=== PATIENT | female | born 1940 | race Caucasian/White ===

== ENCOUNTER → 2016-09-30 | Outpatient (CLI) | payer MEDICARE, MEDICAID ==
[~2016-09-30] MED LIST: CYCL-259 PO; DULO20CA45 PO; GABA300C10 PO; GABA600T2 PO; INSU100V8 SQ; LEVO125T5 PO; METF500T4 PO; OLME40TA PO; OXYC1TAB7 PO; [UNRECOGNIZED DRUG - OTHER] PO
== END | disposition home or self-care (01) ==
LOC: CFH 15:09
PROVIDERS: ATTEND Family Medicine
DX: M75.122 Complete rotator cuff tear or rupture of left shoulder, not specified as traumatic (principal); S43.492A Other sprain of left shoulder joint, initial encounter; M19.012 Primary osteoarthritis, left shoulder; X58.XXXA Exposure to other specified factors, initial encounter; Y93.89 Activity, other specified; Y92.89 Other specified places as the place of occurrence of the external cause; Y99.8 Other external cause status

== ENCOUNTER → 2017-03-17 | Outpatient (CLI) | payer MEDICARE, MEDICAID ==
[~2017-03-17] MED LIST changes: -OLME40TA PO; +OLME40TA12 PO
[2017-03-17 12:40] LABS: HEMATOCRIT 39.1 % (34.6-47.8); HEMOGLOBIN 12.6 g/dL (11.7-16.4); WHITE BLOOD COUNT 8.5 x10^3/uL (3.4-10)
[2017-03-17 12:43] LABS: BLOOD UREA NITROGEN 36 mg/dL (7-18)
[2017-03-17 12:56] LABS: ASPARTATE AMINO TRANSFERASE 19 U/L (15-37)
== END | disposition home or self-care (01) ==
LOC: LAB 09:17
PROVIDERS: ATTEND Family Medicine
DX: Z00.01 Encounter for general adult medical examination with abnormal findings (principal); E78.2 Mixed hyperlipidemia; E11.9 Type 2 diabetes mellitus without complications; E03.8 Other specified hypothyroidism; Z79.899 Other long term (current) drug therapy
CPT/HCPCS: 36415; 80053; 80061; 81001; 83036; 84443; 85025

== ENCOUNTER 2017-10-18 12:30 | Emergency (ER) | payer MEDICARE, MEDICAID ==
[~2017-10-18] VITALS: Ht 162.6 cm; Wt 100.0 kg
[2017-10-18] MEDS ORDERED: HYDROcodone/APAP 5/325 TABLET PO ONE (15:00)
[2017-10-18] MEDS ORDERED: HYDROcodone/APAP 5/325 TABLET ONE (15:08)
[2017-10-18 16:12] VITALS: BP 135/78
== END 2017-10-18 16:14 | disposition home or self-care (01) ==
LOC: ED 16:05
DX: S40.012A Contusion of left shoulder, initial encounter (principal); S09.90XA Unspecified injury of head, initial encounter; M54.6 Pain in thoracic spine; M54.5 Low back pain; E11.9 Type 2 diabetes mellitus without complications; W19.XXXA Unspecified fall, initial encounter; Y93.89 Activity, other specified; Y92.89 Other specified places as the place of occurrence of the external cause; Y99.8 Other external cause status
CPT/HCPCS: 70450; 71046; 72072; 72110; 99284

== ENCOUNTER 2017-10-20 10:17 | Inpatient (IN) | payer MEDICARE, MEDICAID ==
[~2017-10-20] VITALS: Ht 152.4 cm; Wt 90.0 kg
[2017-10-20] MEDS ORDERED: DIAZEPAM 5 MG/ML, 2ML IM ONE (11:00)
[2017-10-20 11:18] LABS: BASOPHILS # (AUTO) 0.04 x10^3/uL (0-0.1); BASOPHILS % (AUTO) 1 % (0-1); EOSINOPHILS # (AUTO) 0.39 x10^3/uL (0-0.4); EOSINOPHILS % (AUTO) 6 % (1-7); LYMPHOCYTES # (AUTO) 2.71 x10^3/uL (1-3.4); LYMPHOCYTES % (AUTO) 39 % (22-44); MD NO; MEAN CORPUSCULAR HEMOGLOBIN 30.6 pg (27.0-34.8); MEAN CORPUSCULAR VOLUME 92.7 fL (80-100); MEAN PLATELET VOLUME 7.6 fL (7.4-10.4); MONOCYTES # (AUTO) 0.76 x10^3/uL (0.2-0.8); MONOCYTES % (AUTO) 11 % (2-9); NEUTROPHILS # (AUTO) 2.98 x10^3/uL (1.8-6.8); NEUTROPHILS % (AUTO) 43 % (42-75); PLATELET COUNT 320 x10^3/uL (130-400); RED BLOOD COUNT 3.93 x10^6/uL (3.82-5.3); RED CELL DISTRIBUTION WIDTH 14.2 % (9.6-15.2)
[2017-10-20 11:21] LABS: INTERNATIONAL NORMALIZED RATIO 1.01 (0.93-1.1); PROTHROMBIN TIME 10.5 Seconds (9.6-11.5)
[2017-10-20 11:27] LABS: ALBUMIN 3.1 g/dL (3.4-5.0); ANION GAP 5 mmol/L (5-15); CALCIUM 8.4 mg/dL (8.5-10.1); CHLORIDE 105 mmol/L (98-107)
[2017-10-20 11:30] LABS: ALANINE AMINOTRANSFERASE 17 U/L (12-78); ALKALINE PHOSPHATASE 105 U/L (45-117); BILIRUBIN,TOTAL 0.5 mg/dL (0.2-1.0); CREATININE 1.42 mg/dL (0.55-1.02); TOTAL PROTEIN 7.1 g/dL (6.4-8.2)
[2017-10-20] MEDS ORDERED: hydrALAzine 20 MG/ML, 1ML IVPush PRN (15:00)
[2017-10-20] MEDS ORDERED: POLYETHYLENE GLYCOL 17 GM PACKET PO PRN (15:00)
[2017-10-20] MEDS ORDERED: BISACODYL 10 MG SUPP PR PRN (15:00)
[2017-10-20] MEDS ORDERED: ONDANSETRON 2MG/ML, 2ML IVPush PRN (15:00)
[2017-10-20] MEDS ORDERED: GLUCAGON 1 MG IM PRN (15:00)
[2017-10-20] MEDS ORDERED: DEXTROSE 50%, 50ML SYRINGE IVPush PRN (15:00)
[2017-10-20] MEDS ORDERED: ACETAMINOPHEN 325 MG TABLET PO PRN (15:00)
[2017-10-20] MEDS ORDERED: LABETALOL 5MG/ML, 20ML IVPush PRN (15:00)
[2017-10-20] MEDS ORDERED: ONDANSETRON ODT 4 MG PO PRN (15:00)
[2017-10-20] MEDS ORDERED: DEXTROSE 4 GM TAB.CHEW PO PRN (15:00)
[2017-10-20] MEDS: INSULIN LISPRO 100 UNITS/ML, PEN SQ-INSULIN SCH ×2 (16:00→20:06)
[2017-10-20 16:23] VITALS: BP 133/61
[2017-10-20 16:30] VITALS: BP 129/70
[2017-10-20 16:31] VITALS: BP 156/72
[2017-10-20] MEDS: HEPARIN 5,000 UNITS/ML, 1ML SQ SCH (17:04)
[2017-10-20] MEDS: LACTATED RINGERS 1,000 ML IV SCH (17:04)
[2017-10-20] MEDS: OXYcodone/APAP 10/325MG TABLET PO PRN (18:54)
[2017-10-20 19:58] VITALS: BP 153/82
[2017-10-20] MEDS: DULOXETINE 30 MG CAPSULE.DR PO SCH (20:05)
[2017-10-20] MEDS: INSULIN GLARGINE 100 UNITS/ML, PEN SQ-INSULIN SCH (20:06)
[2017-10-20] MEDS: SODIUM CHLORIDE FLUSH 10ML SYR IVF SCH (20:06)
[2017-10-21] MEDS: HEPARIN 5,000 UNITS/ML, 1ML SQ SCH ×4 (00:17→21:19)
[2017-10-21 01:03] VITALS: BP 159/84
[2017-10-21] MEDS: OXYcodone/APAP 10/325MG TABLET PO PRN ×4 (02:27→21:18)
[2017-10-21 05:11] LABS: BASOPHILS # (AUTO) 0.03 x10^3/uL (0-0.1); BASOPHILS % (AUTO) 1 % (0-1); EOSINOPHILS # (AUTO) 0.27 x10^3/uL (0-0.4); EOSINOPHILS % (AUTO) 4 % (1-7); LYMPHOCYTES # (AUTO) 1.83 x10^3/uL (1-3.4); LYMPHOCYTES % (AUTO) 30 % (22-44); MD NO; MEAN CORPUSCULAR HEMOGLOBIN 30.1 pg (27.0-34.8); MEAN CORPUSCULAR HGB CONC 32.7 g/dL (32.4-35.8); MEAN CORPUSCULAR VOLUME 91.8 fL (80-100); MEAN PLATELET VOLUME 7.4 fL (7.4-10.4); MONOCYTES # (AUTO) 0.55 x10^3/uL (0.2-0.8); MONOCYTES % (AUTO) 9 % (2-9); NEUTROPHILS # (AUTO) 3.45 x10^3/uL (1.8-6.8); NEUTROPHILS % (AUTO) 56 % (42-75); PLATELET COUNT 326 x10^3/uL (130-400); RED BLOOD COUNT 3.94 x10^6/uL (3.82-5.3); RED CELL DISTRIBUTION WIDTH 13.9 % (9.6-15.2)
[2017-10-21 05:22] LABS: CHLORIDE 109 mmol/L (98-107)
[2017-10-21 05:31] LABS: ALANINE AMINOTRANSFERASE 15 U/L (12-78); ALBUMIN 2.8 g/dL (3.4-5.0); ALKALINE PHOSPHATASE 100 U/L (45-117); ANION GAP 6 mmol/L (5-15); BILIRUBIN,TOTAL 0.8 mg/dL (0.2-1.0); CALCIUM 8.5 mg/dL (8.5-10.1); CREATININE 0.95 mg/dL (0.55-1.02); TOTAL PROTEIN 6.8 g/dL (6.4-8.2)
[2017-10-21] MEDS: LACTATED RINGERS 1,000 ML IV SCH ×2 (05:33→21:18)
[2017-10-21] MEDS: LEVOTHYROXINE 125 MCG TABLET PO SCH (06:19)
[2017-10-21] MEDS: INSULIN LISPRO 100 UNITS/ML, PEN SQ-INSULIN SCH ×4 (06:21→21:56)
[2017-10-21 07:19] VITALS: BP 154/72
[2017-10-21] MEDS: LOSARTAN 50MG TABLET PO SCH (08:25)
[2017-10-21] MEDS: SODIUM CHLORIDE FLUSH 10ML SYR IVF SCH ×2 (08:26→21:00)
[2017-10-21] MEDS: DULOXETINE 30 MG CAPSULE.DR PO SCH ×2 (08:26→21:53)
[2017-10-21] MEDS: TOLTERODINE LA 4MG CAP.ER.24H PO SCH (08:26)
[2017-10-21] MEDS: SENNA/DOCUSATE TABLET PO SCH (08:26)
[2017-10-21 14:30] VITALS: BP 130/55
[2017-10-21 19:30] VITALS: BP 158/71
[2017-10-21] MEDS: INSULIN GLARGINE 100 UNITS/ML, PEN SQ-INSULIN SCH (21:56)
[2017-10-22] MEDS: OXYcodone/APAP 10/325MG TABLET PO PRN ×4 (01:44→21:30)
[2017-10-22 02:30] VITALS: BP 167/93
[2017-10-22] MEDS: LEVOTHYROXINE 125 MCG TABLET PO SCH (05:47)
[2017-10-22] MEDS: INSULIN LISPRO 100 UNITS/ML, PEN SQ-INSULIN SCH ×4 (07:00→20:33)
[2017-10-22 07:05] VITALS: BP 154/75
[2017-10-22 07:52] LABS: HEMOGLOBIN A1C 6.6 % (4.2-6.3)
[2017-10-22] MEDS: HEPARIN 5,000 UNITS/ML, 1ML SQ SCH ×2 (08:17→17:10)
[2017-10-22] MEDS: LOSARTAN 50MG TABLET PO SCH (08:17)
[2017-10-22] MEDS: DULOXETINE 30 MG CAPSULE.DR PO SCH ×2 (08:17→20:33)
[2017-10-22] MEDS: TOLTERODINE LA 4MG CAP.ER.24H PO SCH (08:17)
[2017-10-22] MEDS: SENNA/DOCUSATE TABLET PO SCH (08:17)
[2017-10-22] MEDS: SODIUM CHLORIDE FLUSH 10ML SYR IVF SCH ×2 (08:18→20:33)
[2017-10-22 13:54] VITALS: BP 151/90
[2017-10-22] MEDS ORDERED: metFORMIN 500 MG TABLET PO SCH (17:00)
[2017-10-22] MEDS: metFORMIN 500 MG TABLET PO SCH (17:10)
[2017-10-22 19:43] VITALS: BP 165/84
[2017-10-23] MEDS: HEPARIN 5,000 UNITS/ML, 1ML SQ SCH ×2 (00:11→08:25)
[2017-10-23 01:29] VITALS: BP_SYST 106; BP_SYST 146; BP_DIAS 53; BP_DIAS 70
[2017-10-23] MEDS: OXYcodone/APAP 10/325MG TABLET PO PRN ×2 (03:42→11:27)
[2017-10-23] MEDS: LEVOTHYROXINE 125 MCG TABLET PO SCH (06:11)
[2017-10-23] MEDS: INSULIN LISPRO 100 UNITS/ML, PEN SQ-INSULIN SCH ×2 (06:15→11:29)
[2017-10-23 08:03] VITALS: BP 179/91
[2017-10-23] MEDS: metFORMIN 500 MG TABLET PO SCH (08:26)
[2017-10-23] MEDS: DULOXETINE 30 MG CAPSULE.DR PO SCH (08:26)
[2017-10-23] MEDS: LOSARTAN 50MG TABLET PO SCH (08:26)
[2017-10-23] MEDS: SODIUM CHLORIDE FLUSH 10ML SYR IVF SCH (08:26)
[2017-10-23] MEDS: SENNA/DOCUSATE TABLET PO SCH (08:28)
[2017-10-23] MEDS: TOLTERODINE LA 4MG CAP.ER.24H PO SCH (08:28)
[2017-10-23] MEDS ORDERED: OXYC1TAB9 PO (09:10)
[2017-10-23] MEDS ORDERED: TOLT4CAP PO (09:10)
[2017-10-23 10:48] VITALS: BP 152/93
== END 2017-10-23 13:21 | disposition home or self-care (01) | DRG 551 ==
LOC: ED 10:41 → EDIP 13:20 → 4NOR 15:44
PROVIDERS: ADMIT Family Medicine; ATTEND Family Medicine
DX: S16.1XXA Strain of muscle, fascia and tendon at neck level, initial encounter (principal); N17.0 Acute kidney failure with tubular necrosis; E11.649 Type 2 diabetes mellitus with hypoglycemia without coma; R29.6 Repeated falls; W06.XXXA Fall from bed, initial encounter; I10 Essential (primary) hypertension; E03.9 Hypothyroidism, unspecified; G89.29 Other chronic pain; Z79.4 Long term (current) use of insulin; Z79.899 Other long term (current) drug therapy; Z87.891 Personal history of nicotine dependence; Z96.652 Presence of left artificial knee joint; Y93.89 Activity, other specified; Y92.042 Bedroom in boarding-house as the place of occurrence of the external cause; Y99.8 Other external cause status
CPT/HCPCS: 36415; 70450; 71045; 72125; 80053; 82962; 83036; 85025; 85610; 99285; J1644; J0360; J1815; J7120

== ENCOUNTER → 2018-03-06 | Outpatient (CLI) | payer MEDICARE, MEDICAID ==
[~2018-03-06] MED LIST changes: +METF500T17 PO; -METF500T4 PO; +OXYC-432 PO; +TOLT4CAP PO
== END | disposition home or self-care (01) ==
LOC: CFH 10:05
PROVIDERS: ATTEND Physical Medicine & Rehabilitation Pain Medicine
DX: M16.0 Bilateral primary osteoarthritis of hip (principal); M62.512 Muscle wasting and atrophy, not elsewhere classified, left shoulder; M70.61 Trochanteric bursitis, right hip; M70.62 Trochanteric bursitis, left hip; M54.16 Radiculopathy, lumbar region; M25.412 Effusion, left shoulder
CPT/HCPCS: 73523

== ENCOUNTER 2018-04-02 08:37 | Inpatient (IN) | payer MEDICARE, MEDICAID ==
[~2018-04-02] VITALS: Ht 152.4 cm; Wt 88.0 kg
[2018-04-02] MEDS ORDERED: SODIUM CHLORIDE FLUSH 10ML SYR IVF ONE (09:00)
[2018-04-02] MEDS ORDERED: SODIUM CHLORIDE 0.9% 1,000ML IVBOLUS ONE ×2 (09:00→09:30)
[2018-04-02] MEDS ORDERED: PLEASE ENTER HEIGHT AND WEIGHT MC SCH (09:00)
[2018-04-02 09:18] LABS: BASOPHILS # (AUTO) 0.07 x10^3/uL (0-0.1); BASOPHILS % (AUTO) 1 % (0-1); EOSINOPHILS # (AUTO) 0.05 x10^3/uL (0-0.4); EOSINOPHILS % (AUTO) 1 % (1-7); LYMPHOCYTES # (AUTO) 3.14 x10^3/uL (1-3.4); LYMPHOCYTES % (AUTO) 30 % (22-44); MD NO; MEAN CORPUSCULAR HEMOGLOBIN 29.9 pg (27.0-34.8); MEAN CORPUSCULAR HGB CONC 32.7 g/dL (32.4-35.8); MEAN CORPUSCULAR VOLUME 91.6 fL (80-100); MEAN PLATELET VOLUME 7.3 fL (7.4-10.4); MONOCYTES # (AUTO) 0.61 x10^3/uL (0.2-0.8); MONOCYTES % (AUTO) 6 % (2-9); NEUTROPHILS # (AUTO) 6.75 x10^3/uL (1.8-6.8); NEUTROPHILS % (AUTO) 64 % (42-75); PLATELET COUNT 418 x10^3/uL (130-400); RED BLOOD COUNT 4.43 x10^6/uL (3.82-5.3); RED CELL DISTRIBUTION WIDTH 14.6 % (9.6-15.2)
[2018-04-02 09:28] LABS: ALANINE AMINOTRANSFERASE 32 U/L (12-78); ALBUMIN 3.4 g/dL (3.4-5.0); ANION GAP 10 mmol/L (5-15); CALCIUM 9.1 mg/dL (8.5-10.1); CHLORIDE 101 mmol/L (98-107); CREATININE 2.26 mg/dL (0.55-1.02)
[2018-04-02] MEDS ORDERED: SODIUM CHLORIDE 0.9% 1,000 ML IV ONE (09:30)
[2018-04-02] MEDS ORDERED: DULO30CA2 PO (09:30)
[2018-04-02] MEDS ORDERED: GABA300C10 PO (09:30)
[2018-04-02] MEDS ORDERED: OXYC20TA2 PO (09:30)
[2018-04-02] MEDS ORDERED: TIZA4TAB PO (09:30)
[2018-04-02] MEDS ORDERED: PANT40TA5 PO (09:30)
[2018-04-02 09:32] LABS: ALKALINE PHOSPHATASE 131 U/L (45-117); BILIRUBIN,TOTAL 0.6 mg/dL (0.2-1.0); TOTAL PROTEIN 7.8 g/dL (6.4-8.2); TROPONIN I < 0.015 ng/mL (0.000-0.045)
[2018-04-02 10:36] LABS: MICROSCOPIC AUTO
[2018-04-02 10:38] LABS: CULTURE INDICATED? YES
[2018-04-02] MEDS ORDERED: DEXTROSE 50%, 50ML SYRINGE IVPush ONE (11:30)
[2018-04-02] MEDS ORDERED: INSULIN REGULAR 100 UNITS/ML, 3ML VIAL IVPush ONE (11:30)
[2018-04-02] MEDS ORDERED: CEFTRIAXONE PMX 1GM/50ML 50 ML IV ONE (11:30)
[2018-04-02] MEDS ORDERED: CEFTRIAXONE 1,000 MG IM ONE (11:30)
[2018-04-02] MEDS ORDERED: DEXTROSE 50%, 50ML SYRINGE ONE (11:31)
[2018-04-02] MEDS ORDERED: INSULIN REGULAR 100 UNITS/ML, 3ML VIAL ONE (11:32)
[2018-04-02] MEDS ORDERED: ACETAMINOPHEN 325 MG TABLET PO PRN (12:00)
[2018-04-02] MEDS ORDERED: GABAPENTIN 300 MG CAPSULE PO PRN (12:00)
[2018-04-02] MEDS ORDERED: hydrALAzine 20 MG/ML, 1ML IVPush PRN (12:00)
[2018-04-02] MEDS ORDERED: LABETALOL 5MG/ML, 20ML IVPush PRN (12:00)
[2018-04-02 12:12] LABS: HEMOGLOBIN A1C 7.5 % (4.2-6.3)
[2018-04-02] MEDS ORDERED: CEFTRIAXONE PMX 1GM/50ML 50 ML ONE (12:20)
[2018-04-02] MEDS: SODIUM CHLORIDE 0.9% 1,000 ML IV SCH ×2 (12:26→19:44)
[2018-04-02 12:31] LABS: TROPONIN I < 0.015 ng/mL (0.000-0.045)
[2018-04-02 12:50] VITALS: BP 110/48
[2018-04-02] MEDS ORDERED: HEPARIN 5,000 UNITS/ML, 1ML SQ SCH (14:00)
[2018-04-02 14:29] LABS: CHLORIDE,URINE RANDOM 45 mmol/L; POTASSIUM,URINE RANDOM 5 mmol/L; SODIUM,URINE RANDOM 48 mmol/L
[2018-04-02] MEDS: GABAPENTIN 300 MG CAPSULE PO SCH ×2 (16:15→22:33)
[2018-04-02 16:32] LABS: INTERNATIONAL NORMALIZED RATIO 1.01 (0.93-1.1); PROTHROMBIN TIME 10.5 Seconds (9.6-11.5)
[2018-04-02 16:55] LABS: TROPONIN I < 0.015 ng/mL (0.000-0.045)
[2018-04-02 19:27] LABS: ANION GAP 11 mmol/L (5-15); CALCIUM 8.2 mg/dL (8.5-10.1); CHLORIDE 113 mmol/L (98-107); CREATININE 1.73 mg/dL (0.55-1.02)
[2018-04-02] MEDS ORDERED: DULOXETINE 30 MG CAPSULE.DR PO SCH (21:00)
[2018-04-02] MEDS ORDERED: FAMOTIDINE 20 MG TABLET PO SCH (21:00)
[2018-04-02] MEDS ORDERED: SODIUM BICARB 8.4%,50ML SYR. 75 MEQ in SODIUM CHLORIDE 0.45% 1,000 ML IV SCH (22:00)
[2018-04-03 01:13] VITALS: BP 111/58
[2018-04-03 01:37] LABS: ANION GAP 7 mmol/L (5-15); CALCIUM 8.3 mg/dL (8.5-10.1); CHLORIDE 113 mmol/L (98-107); CREATININE 1.34 mg/dL (0.55-1.02)
[2018-04-03 01:46] LABS: TROPONIN I < 0.015 ng/mL (0.000-0.045)
[2018-04-03] MEDS ORDERED: SODIUM POLYSTYRENE SULFONATE ORAL SUSP PO ONE (02:00)
[2018-04-03] MEDS: SODIUM CHLORIDE 0.9% 1,000 ML IV SCH (03:44)
[2018-04-03 06:31] VITALS: BP 133/69
[2018-04-03 08:25] LABS: BASOPHILS # (AUTO) 0.05 x10^3/uL (0-0.1); BASOPHILS % (AUTO) 1 % (0-1); EOSINOPHILS # (AUTO) 0.05 x10^3/uL (0-0.4); EOSINOPHILS % (AUTO) 0 % (1-7); LYMPHOCYTES # (AUTO) 3.22 x10^3/uL (1-3.4); LYMPHOCYTES % (AUTO) 29 % (22-44); MD SCAN; MEAN CORPUSCULAR HEMOGLOBIN 30.7 pg (27.0-34.8); MEAN CORPUSCULAR HGB CONC 33.4 g/dL (32.4-35.8); MEAN CORPUSCULAR VOLUME 91.7 fL (80-100); MEAN PLATELET VOLUME 8.1 fL (7.4-10.4); MONOCYTES # (AUTO) 0.58 x10^3/uL (0.2-0.8); MONOCYTES % (AUTO) 5 % (2-9); NEUTROPHILS # (AUTO) 7.07 x10^3/uL (1.8-6.8); NEUTROPHILS % (AUTO) 65 % (42-75); PLATELET COUNT 259 x10^3/uL (130-400); RED BLOOD COUNT 4.41 x10^6/uL (3.82-5.3)
[2018-04-03] MEDS ORDERED: TOLTERODINE TARTRATE 4 MG PO SCH (09:00)
[2018-04-03] MEDS ORDERED: LOSARTAN 50MG TABLET PO SCH (09:00)
[2018-04-03] MEDS ORDERED: FAMOTIDINE 20 MG TABLET PO SCH (09:00)
[2018-04-03] MEDS: GABAPENTIN 300 MG CAPSULE PO SCH (09:10)
[2018-04-03] MEDS: PANTOPROZOLE 40MG TABLET PO SCH (09:11)
[2018-04-03] MEDS: LEVOTHYROXINE 125 MCG TABLET PO SCH (09:12)
[2018-04-03] MEDS ORDERED: SODIUM BICARBONATE 8.4% 150 MEQ in DEXTROSE 5% 1,000 ML IV SCH (09:30)
[2018-04-03] MEDS: CEFTRIAXONE PMX 1GM/50ML 50 ML IV SCH (10:46)
[2018-04-03] MEDS: SODIUM ACETATE 150 MEQ in DEXTROSE 5% 1,000 ML IV SCH ×2 (10:46→23:15)
[2018-04-03 12:10] VITALS: BP 147/69
[2018-04-03] MEDS: LORazepam 2 MG/ML, 1ML IVPush PRN (16:13)
[2018-04-03] MEDS: OXYcodone/APAP 5/325MG TABLET PO PRN ×2 (16:58→22:17)
[2018-04-03 20:35] VITALS: BP 139/64
[2018-04-04 01:19] VITALS: BP 131/59
[2018-04-04] MEDS: LORazepam 2 MG/ML, 1ML IVPush PRN (01:35)
[2018-04-04] MEDS: OXYcodone/APAP 5/325MG TABLET PO PRN ×2 (03:40→11:24)
[2018-04-04] MEDS: LEVOTHYROXINE 125 MCG TABLET PO SCH (06:15)
[2018-04-04 07:18] VITALS: BP 157/81
[2018-04-04] MEDS: CEFTRIAXONE PMX 1GM/50ML 50 ML IV SCH (09:58)
[2018-04-04] MEDS: PANTOPROZOLE 40MG TABLET PO SCH (09:58)
[2018-04-04] MEDS: SODIUM ACETATE 150 MEQ in DEXTROSE 5% 1,000 ML IV SCH (10:45)
[2018-04-04 11:27] LABS: BASOPHILS % (AUTO) 1 % (0-1); EOSINOPHILS # (AUTO) 0.08 x10^3/uL (0-0.4); EOSINOPHILS % (AUTO) 1 % (1-7); LYMPHOCYTES # (AUTO) 3.06 x10^3/uL (1-3.4); LYMPHOCYTES % (AUTO) 36 % (22-44); MD NO; MEAN CORPUSCULAR HEMOGLOBIN 30.4 pg (27.0-34.8); MEAN CORPUSCULAR HGB CONC 33.4 g/dL (32.4-35.8); MEAN CORPUSCULAR VOLUME 91.1 fL (80-100); MEAN PLATELET VOLUME 6.8 fL (7.4-10.4); MONOCYTES # (AUTO) 0.79 x10^3/uL (0.2-0.8); MONOCYTES % (AUTO) 9 % (2-9); NEUTROPHILS # (AUTO) 4.37 x10^3/uL (1.8-6.8); NEUTROPHILS % (AUTO) 52 % (42-75); PLATELET COUNT 358 x10^3/uL (130-400); RED BLOOD COUNT 4.12 x10^6/uL (3.82-5.3); RED CELL DISTRIBUTION WIDTH 14.5 % (9.6-15.2)
[2018-04-04 11:28] LABS: ALBUMIN 2.7 g/dL (3.4-5.0); ANION GAP 8 mmol/L (5-15); CALCIUM 7.9 mg/dL (8.5-10.1); CHLORIDE 101 mmol/L (98-107)
[2018-04-04 11:31] LABS: ALANINE AMINOTRANSFERASE 26 U/L (12-78); ALKALINE PHOSPHATASE 100 U/L (45-117); BILIRUBIN,TOTAL 0.5 mg/dL (0.2-1.0)
[2018-04-04] MEDS ORDERED: POTASSIUM PHOS 4.4 MEQ/ML IV ONE (13:30)
[2018-04-04] MEDS ORDERED: MAGNESIUM SULFATE PMX 2GM/50ML 50 ML IV ONE (13:30)
[2018-04-04] MEDS ORDERED: POTASSIUM PHOSPHATE 22 MEQ in SODIUM CHLORIDE 0.9% 500 ML IV ONE (14:00)
[2018-04-04] MEDS: OXYcodone/APAP 10/325MG TABLET PO PRN ×2 (15:28→20:20)
[2018-04-04] MEDS: POTASSIUM CHLORIDE 20 MEQ PACKET PO SCH (17:22)
[2018-04-04 19:12] VITALS: BP 149/78
[2018-04-05] MEDS: OXYcodone/APAP 10/325MG TABLET PO PRN ×6 (00:55→19:47)
[2018-04-05 01:18] VITALS: BP 140/72
[2018-04-05] MEDS: GABAPENTIN 300 MG CAPSULE PO PRN (04:02)
[2018-04-05 04:08] LABS: CREATININE,URINE RANDOM 39.3 mg/dL
[2018-04-05 05:31] LABS: ALBUMIN 2.7 g/dL (3.4-5.0); ANION GAP 7 mmol/L (5-15); CALCIUM 7.6 mg/dL (8.5-10.1); CHLORIDE 102 mmol/L (98-107)
[2018-04-05 05:34] LABS: ALANINE AMINOTRANSFERASE 26 U/L (12-78); ALKALINE PHOSPHATASE 101 U/L (45-117); BILIRUBIN,TOTAL 0.3 mg/dL (0.2-1.0); CREATININE 0.95 mg/dL (0.55-1.02); TOTAL PROTEIN 6.9 g/dL (6.4-8.2)
[2018-04-05] MEDS ORDERED: MAGNESIUM SULFATE PMX 2GM/50ML 50 ML IV ONE (06:00)
[2018-04-05] MEDS: LEVOTHYROXINE 125 MCG TABLET PO SCH (06:37)
[2018-04-05 07:31] VITALS: BP 137/78
[2018-04-05] MEDS: PANTOPROZOLE 40MG TABLET PO SCH (09:26)
[2018-04-05] MEDS: POTASSIUM CHLORIDE 20 MEQ PACKET PO SCH ×2 (09:26→15:29)
[2018-04-05] MEDS: metroNIDAZOLE 250 MG TABLET PO SCH (09:26)
[2018-04-05] MEDS: CEFTRIAXONE PMX 1GM/50ML 50 ML IV SCH (09:30)
[2018-04-05 12:46] VITALS: BP 162/62
[2018-04-05] MEDS: CEFDINIR 300 MG CAPSULE PO SCH (19:47)
[2018-04-05 21:25] VITALS: BP 163/76
[2018-04-06] MEDS: OXYcodone/APAP 10/325MG TABLET PO PRN ×3 (00:43→09:24)
[2018-04-06 02:00] VITALS: BP 165/82
[2018-04-06] MEDS: LEVOTHYROXINE 125 MCG TABLET PO SCH (05:02)
[2018-04-06 07:47] VITALS: BP 173/79
[2018-04-06] MEDS: PANTOPROZOLE 40MG TABLET PO SCH (08:07)
[2018-04-06] MEDS: POTASSIUM CHLORIDE 20 MEQ PACKET PO SCH (08:07)
[2018-04-06] MEDS: metroNIDAZOLE 250 MG TABLET PO SCH (08:07)
[2018-04-06] MEDS: CEFDINIR 300 MG CAPSULE PO SCH (08:07)
[2018-04-06 08:10] VITALS: BP 163/78
[2018-04-06] MEDS: CEFTRIAXONE PMX 1GM/50ML 50 ML IV SCH (08:10)
[2018-04-06] MEDS ORDERED: CHOLECALCIFEROL 1,000 UNIT TABLET PO SCH (09:00)
[2018-04-06] MEDS: GABAPENTIN 300 MG CAPSULE PO PRN (09:23)
[2018-04-06 12:15] VITALS: BP 167/72
[2018-04-06] MEDS ORDERED: CEFD300C37 PO (12:43)
[2018-04-06] MEDS ORDERED: METR250T PO (12:43)
== END 2018-04-06 14:00 | disposition home or self-care (01) | DRG 64 ==
LOC: ED 09:19 → EDIP 10:11 → 4WST 13:11 → DCLOUNGE 04-06 13:55
PROVIDERS: ADMIT Family Medicine; ATTEND Family Medicine
PROC: 0T9B70Z Drainage of Bladder with Drainage Device, Via Natural or Artificial Opening (ICD-10-PCS; principal; 2018-04-02)
DX: I61.9 Nontraumatic intracerebral hemorrhage, unspecified (principal); G93.6 Cerebral edema; N17.9 Acute kidney failure, unspecified; N39.0 Urinary tract infection, site not specified; E87.3 Alkalosis; M62.82 Rhabdomyolysis; E03.9 Hypothyroidism, unspecified; E83.42 Hypomagnesemia; E86.0 Dehydration; E87.5 Hyperkalemia; F03.90 Unspecified dementia, unspecified severity, without behavioral disturbance, psychotic disturbance, mood disturbance, and anxiety; F32.9 Major depressive disorder, single episode, unspecified; G47.33 Obstructive sleep apnea (adult) (pediatric); G89.29 Other chronic pain; M25.559 Pain in unspecified hip; K21.9 Gastro-esophageal reflux disease without esophagitis; N32.81 Overactive bladder; M19.90 Unspecified osteoarthritis, unspecified site; W18.39XA Other fall on same level, initial encounter; Y93.89 Activity, other specified; Y92.89 Other specified places as the place of occurrence of the external cause; Y99.8 Other external cause status; Z53.20 Procedure and treatment not carried out because of patient's decision for unspecified reasons; Z87.891 Personal history of nicotine dependence; Z99.81 Dependence on supplemental oxygen; R01.1 Cardiac murmur, unspecified; Z82.49 Family history of ischemic heart disease and other diseases of the circulatory system; I10 Essential (primary) hypertension; E11.9 Type 2 diabetes mellitus without complications; Z88.6 Allergy status to analgesic agent
CPT/HCPCS: 36415; 70450; 70551; 71045; 73523; 76770; 80048; 80053; 81001; 82140; 82306; 82436; 82550; 82570; 82962; 83036; 83605; 83735; 84100; 84133; 84156; 84300; 84443; 84484; 84550; 85025; 85610; 87077; 87086; 87186; 87205; 93005; 93308; 93321; 93325; 96360; G0378; J0696; J7070; J2060; J3475; J7030; J7040

== ENCOUNTER 2018-08-08 10:26 | Outpatient (CLI) | payer MEDICARE, MEDICAID ==
[~2018-08-08 10:26] MED LIST changes: +BENZ100C PO; +CEFD300C37 PO; +DULO30CA2 PO; +GABA300C PO; -GABA600T2 PO; +GABA600T7 PO; +METR250T PO; +MIRA50TA PO; +OSEL75CA PO; +OXYC20TA2 PO; +PANT40TA5 PO; +TIZA4TAB PO; +TOLT4CAP12 PO; +TRAM50TA2 PO
== END 2018-08-08 23:59 | disposition home or self-care (01) ==
LOC: CFH 10:26
PROVIDERS: ATTEND Family Medicine
DX: Z02.9 Encounter for administrative examinations, unspecified (principal)

== ENCOUNTER 2018-09-14 10:08 | Outpatient (CLI) | payer MEDICARE, MEDICAID ==
[2018-09-14 13:43] LABS: ALBUMIN 3.4 g/dL (3.4-5.0); ANION GAP 7 mmol/L (5-15); CALCIUM 8.9 mg/dL (8.5-10.1); CHLORIDE 103 mmol/L (98-107)
[2018-09-14 13:52] LABS: ALANINE AMINOTRANSFERASE 18 U/L (12-78); ALKALINE PHOSPHATASE 99 U/L (45-117); BILIRUBIN,TOTAL 0.4 mg/dL (0.2-1.0); CHOL/HDL RATIO 3.4; CHOLESTEROL, TOTAL 170 mg/dL (140-239); HDL CHOL % 29 % (28-40); HDL CHOLESTEROL (DIRECT) 50 mg/dL (40-60); LDL CHOLESTEROL,CALCULATED 103 mg/dL (54-169); LDL/HDL RATIO 2.1 (0.5-3.0); TOTAL PROTEIN 8.2 g/dL (6.4-8.2); TRIGLYCERIDES 87 mg/dL (50-200); VLDL CHOLESTEROL 17 mg/dL (0-25)
[2018-09-14 15:48] LABS: MEAN CORPUSCULAR HEMOGLOBIN 29.9 pg (27.0-34.8); MEAN CORPUSCULAR HGB CONC 31.8 g/dL (32.4-35.8); MEAN PLATELET VOLUME 8.4 fL (7.4-10.4); PLATELET COUNT 316 x10^3/uL (130-400); RED BLOOD COUNT 4.35 x10^6/uL (3.82-5.3); RED CELL DISTRIBUTION WIDTH 14.6 % (9.6-15.2)
[2018-09-14 17:29] LABS: HEMOGLOBIN A1C 6.6 % (4.2-6.3)
== END 2018-09-14 23:59 | disposition home or self-care (01) ==
LOC: CFH 10:08
PROVIDERS: ATTEND Family Medicine
DX: I12.9 Hypertensive chronic kidney disease with stage 1 through stage 4 chronic kidney disease, or unspecified chronic kidney disease (principal); E11.22 Type 2 diabetes mellitus with diabetic chronic kidney disease; E03.9 Hypothyroidism, unspecified; K21.9 Gastro-esophageal reflux disease without esophagitis; Z79.899 Other long term (current) drug therapy
CPT/HCPCS: 36415; 80053; 80061; 83036; 84443; 85027

== ENCOUNTER 2020-03-11 15:28 | Observation (INO) | payer MEDICARE, MEDICAID ==
[~2020-03-11] VITALS: Ht 152.4 cm; Wt 89.3 kg
[~2020-03-11 15:28] MED LIST changes: -OSEL75CA PO; +OSEL75CA26 PO; -OXYC-432 PO; +OXYC1TAB18 PO; -PANT40TA5 PO; +PANT40TA6 PO; -TIZA4TAB PO; +TIZA4TAB2 PO
[2020-03-11] MEDS ORDERED: OXYC20TA2 PO (15:58)
[2020-03-11] MEDS ORDERED: ALBU90AE2 INH (15:58)
[2020-03-11 16:03] LABS: ALANINE AMINOTRANSFERASE 20 U/L (12-78); ALBUMIN 3.2 g/dL (3.4-5.0); ANION GAP 5 mmol/L (5-15); CALCIUM 8.9 mg/dL (8.5-10.1); CHLORIDE 106 mmol/L (98-107); CREATININE 1.22 mg/dL (0.55-1.02)
[2020-03-11 16:05] LABS: ALKALINE PHOSPHATASE 107 U/L (45-117); BASOPHILS % (AUTO) 1 % (0-1); BILIRUBIN,TOTAL 0.8 mg/dL (0.2-1.0); EOSINOPHILS % (AUTO) 2 % (1-7); LYMPHOCYTES % (AUTO) 30 % (22-44); MEAN CORPUSCULAR HEMOGLOBIN 29.6 pg (27.0-34.8); MEAN CORPUSCULAR HGB CONC 32.1 g/dL (32.4-35.8); MEAN PLATELET VOLUME 7.5 fL (7.4-10.4); MONOCYTES % (AUTO) 8 % (2-9); NEUTROPHILS % (AUTO) 59 % (42-75); PLATELET COUNT 300 x10^3/uL (130-400); RED BLOOD COUNT 4.11 x10^6/uL (3.82-5.3); RED CELL DISTRIBUTION WIDTH 13.9 % (9.6-15.2); TOTAL PROTEIN 7.6 g/dL (6.4-8.2)
[2020-03-11 16:14] LABS: MD NO
--- NOTE | 2020-03-11 16:40 | NUR ---
break RN-VS updated and WNL. Straight cath performed and sent to lab. Another warm blanket provided.
[2020-03-11 16:43] LABS: MICROSCOPIC INDICATED
--- NOTE | 2020-03-11 17:21 | NUR ---
PT TRANSPORTED TO CT.
--- NOTE | 2020-03-11 18:21 | NUR ---
PT INCONTINENT, PROVIDED PERICARE.
[2020-03-11] MEDS ORDERED: SODIUM CHLORIDE 0.9% 1,000 ML IV ONE (18:30)
--- NOTE | 2020-03-11 18:51 | NUR ---
[facility] ADMITTING MD AT BEDSIDE.
[2020-03-11] MEDS: SODIUM CHLORIDE 0.9% 1,000 ML IV SCH (19:30)
[2020-03-11] MEDS ORDERED: BISACODYL 10 MG SUPP PR PRN (19:30)
[2020-03-11] MEDS ORDERED: ENALAPRILAT 1.25 MG/ML, 2ML IVPush PRN (19:30)
[2020-03-11] MEDS ORDERED: DOCUSATE 100 MG CAPSULE PO PRN (19:30)
[2020-03-11] MEDS ORDERED: ACETAMINOPHEN 325 MG TABLET PO PRN (19:30)
--- NOTE | 2020-03-11 20:00 | NUR ---
REPORT GIVEN TO MARCOS FINE.
[2020-03-11] MEDS ORDERED: ENOXAPARIN 30 MG/0.3 ML SQ SCH (21:00)
[2020-03-11] MEDS: GABAPENTIN 300 MG CAPSULE PO SCH (21:18)
[2020-03-11 21:19] VITALS: BP 155/80
[2020-03-11] MEDS: DULOXETINE 30 MG CAPSULE.DR PO SCH (21:19)
[2020-03-11] MEDS: metFORMIN 500 MG TABLET PO SCH (21:19)
[2020-03-11] MEDS ORDERED: OXYcodone IR 5MG TABLET PO PRN (22:30)
[2020-03-12 01:43] VITALS: BP 144/77
[2020-03-12] MEDS: SODIUM CHLORIDE 0.9% 1,000 ML IV SCH (03:30)
[2020-03-12 05:15] LABS: ANION GAP 7 mmol/L (5-15); CALCIUM 8.8 mg/dL (8.5-10.1); CHLORIDE 113 mmol/L (98-107); CREATININE 0.93 mg/dL (0.55-1.02)
[2020-03-12 05:23] LABS: BASOPHILS % (AUTO) 0 % (0-1); EOSINOPHILS % (AUTO) 1 % (1-7); LYMPHOCYTES % (AUTO) 18 % (22-44); MEAN CORPUSCULAR HEMOGLOBIN 29.8 pg (27.0-34.8); MEAN CORPUSCULAR HGB CONC 32.4 g/dL (32.4-35.8); MEAN PLATELET VOLUME 7.5 fL (7.4-10.4); MONOCYTES % (AUTO) 5 % (2-9); NEUTROPHILS % (AUTO) 76 % (42-75); PLATELET COUNT 332 x10^3/uL (130-400); RED BLOOD COUNT 4.26 x10^6/uL (3.82-5.3); RED CELL DISTRIBUTION WIDTH 13.8 % (9.6-15.2)
[2020-03-12] MEDS: LEVOTHYROXINE 125 MCG TABLET PO SCH ×2 (05:24→05:27)
[2020-03-12 05:29] LABS: MD NO
[2020-03-12 06:56] VITALS: BP 139/72
[2020-03-12] MEDS: LOSARTAN 100 MG TAB PO SCH (08:05)
[2020-03-12] MEDS: ALBUTEROL HFA 90 MCG/SPRAY INH SCH (08:06)
[2020-03-12] MEDS: GABAPENTIN 300 MG CAPSULE PO SCH (08:06)
[2020-03-12] MEDS: TEMPLATE NON-FORMULARY MED. (Mirabegron** (Myrbetriq**) 50 MG) PO SCH (08:06)
[2020-03-12] MEDS: metFORMIN 500 MG TABLET PO SCH ×2 (08:06→18:36)
[2020-03-12] MEDS: DULOXETINE 30 MG CAPSULE.DR PO SCH (08:06)
[2020-03-12] MEDS ORDERED: TOLTERODINE LA 4MG CAP.ER.24H PO SCH (09:00)
[2020-03-12] MEDS ORDERED: OXYcodone IR 5MG TABLET ONE (11:34)
[2020-03-12 14:00] VITALS: BP 145/68
[2020-03-12] MEDS ORDERED: OXYcodone IR 5MG TABLET PO PRN ×2 (16:30→17:30)
[2020-03-12] MEDS: OxyconTIN ER 10 MG TAB.ER PO SCH (17:17)
[2020-03-12] MEDS: RIVAROXABAN 15 MG TABLET PO SCH (17:17)
[2020-03-12] MEDS ORDERED: MORPHINE SULFATE 4 MG/ML, 1ML IVPush ONE (18:00)
[2020-03-12] MEDS ORDERED: ACETAMINOPHEN 325 MG TABLET PO PRN (19:30)
[2020-03-12 19:43] VITALS: BP 127/71
[2020-03-12] MEDS: NYSTATIN TOPICAL POWDER 15GM TP SCH (21:00)
[2020-03-13 01:20] VITALS: BP 135/69
[2020-03-13] MEDS: OxyconTIN ER 10 MG TAB.ER PO SCH ×2 (05:24→16:40)
[2020-03-13] MEDS: LEVOTHYROXINE 125 MCG TABLET PO SCH (05:24)
[2020-03-13 06:49] VITALS: BP 161/78
[2020-03-13] MEDS: RIVAROXABAN 15 MG TABLET PO SCH ×2 (08:36→16:40)
[2020-03-13] MEDS: ALBUTEROL HFA 90 MCG/SPRAY INH SCH (08:36)
[2020-03-13] MEDS: metFORMIN 500 MG TABLET PO SCH ×2 (08:36→16:40)
[2020-03-13] MEDS: LOSARTAN 100 MG TAB PO SCH (08:37)
[2020-03-13] MEDS: TEMPLATE NON-FORMULARY MED. (Mirabegron** (Myrbetriq**) 50 MG) PO SCH (08:38)
[2020-03-13] MEDS: NYSTATIN TOPICAL POWDER 15GM TP SCH (08:38)
[2020-03-13] MEDS ORDERED: DULOXETINE 30 MG CAPSULE.DR PO SCH (09:00)
[2020-03-13 12:10] VITALS: BP 151/75
[2020-03-13] MEDS ORDERED: RIVA15TA PO (15:43)
[2020-03-13] MEDS ORDERED: DULO30CA2 PO (15:43)
[2020-03-13] MEDS ORDERED: MORP30TA81 PO (16:59)
== END 2020-03-13 17:15 | disposition home or self-care (01) ==
LOC: ED 18:21 → EDIP 18:28 → INTOOBSV 18:28 → 3N 20:35
PROVIDERS: ADMIT Family Medicine; ATTEND Family Medicine
DX: R41.82 Altered mental status, unspecified (principal); M79.89 Other specified soft tissue disorders; N17.0 Acute kidney failure with tubular necrosis; G89.11 Acute pain due to trauma; M25.562 Pain in left knee; E46 Unspecified protein-calorie malnutrition; G89.29 Other chronic pain; E03.9 Hypothyroidism, unspecified; I10 Essential (primary) hypertension; E11.9 Type 2 diabetes mellitus without complications; E86.0 Dehydration; R53.1 Weakness; G93.40 Encephalopathy, unspecified; I82.401 Acute embolism and thrombosis of unspecified deep veins of right lower extremity; F11.90 Opioid use, unspecified, uncomplicated; M19.90 Unspecified osteoarthritis, unspecified site; Z79.84 Long term (current) use of oral hypoglycemic drugs; Z79.899 Other long term (current) drug therapy; Z79.82 Long term (current) use of aspirin; Z86.73 Personal history of transient ischemic attack (TIA), and cerebral infarction without residual deficits; Z87.891 Personal history of nicotine dependence; Z96.643 Presence of artificial hip joint, bilateral; Z96.653 Presence of artificial knee joint, bilateral; W18.30XA Fall on same level, unspecified, initial encounter; Y93.89 Activity, other specified; Y92.89 Other specified places as the place of occurrence of the external cause
CPT/HCPCS: 36415; 70450; 71045; 73552; 73560; 80048; 80053; 81001; 84145; 84443; 85025; 87086; 93005; 93971; 94640; 96361; 96372; 96374; 97163; 97166; 99285; G0378; J1650; J2270; J7030

== ENCOUNTER 2020-09-02 11:09 | Emergency (ER) | payer MEDICARE, MEDICAID ==
[~2020-09-02] VITALS: Ht 167.6 cm; Wt 70.0 kg
[~2020-09-02 11:09] MED LIST changes: +ALBU90AE2 INH; -CYCL-259 PO; +CYCL10TA2 PO; +MORP30TA81 PO; +RIVA15TA PO
--- NOTE | 2020-09-02 11:10 | NUR ---
PT BROUGHT IN BY ANISHA FROM [facility], PER REPORT SINCE TUESDAY PT HAD COMPLAINED OF GENERAL PAIN, TODAY REPORTS BILAT SHOULDER PAIN. SENT HERE FOR FURTHER EVALUATION. PT HIGHLY IRRITABLE.
[2020-09-02 11:21] VITALS: BP 135/54
--- NOTE | 2020-09-02 11:50 | NUR ---
CARYND RESIDENT AT BEDSIDE FOR EVALUATION
[2020-09-02] MEDS ORDERED: ACETAMINOPHEN 325 MG TABLET PO ONE (12:30)
[2020-09-02] MEDS ORDERED: ACETAMINOPHEN 325 MG TABLET ONE (12:30)
--- NOTE | 2020-09-02 12:35 | NUR ---
Pt to imaging
--- NOTE | 2020-09-02 12:42 | NUR ---
pt refused tylenol. education provided.
--- NOTE | 2020-09-02 13:37 | NUR ---
PT REFUSING MONITORING AND VITAL SIGNS TO BE TAKEN AT THIS TIME.
--- NOTE | 2020-09-02 14:36 | NUR ---
PT CONTINUING TO REFUSE VITAL SIGNS.
--- NOTE | 2020-09-02 15:11 | NUR ---
PT RESTING IN [place] AT THIS TIME, MONITORING IN PLACE, WCTM.
--- NOTE | 2020-09-02 15:45 | NUR ---
PT STATES SHE DOES NOT WANT TO GO BACK TO [facility] AND THAT DAUGHTER WILL COME PICK HER UP. THIS RN CALLED DAUGHTER, HILARIO, PER HILARIO HER MOM IS TO GO BACK TO [facility]. PER DAUGHTER PT HAS DEMENTIA AND NEEDS CARE AT [facility].
--- NOTE | 2020-09-02 16:01 | NUR ---
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 HILARIO STATES SHE NEEDS [facility] AT [facility].
[2020-09-02] MEDS ORDERED: HALOPERIDOL 5 MG/ML ONE (16:42)
--- NOTE | 2020-09-02 16:55 | NUR ---
PT TRANSPORTED VIA [facility] TO [facility].
[2020-09-02] MEDS ORDERED: HALOPERIDOL 5 MG/ML IM PRN (17:00)
== END 2020-09-02 16:56 | disposition home or self-care (01) ==
LOC: ED 15:09
DX: M12.542 Traumatic arthropathy, left hand (principal); M12.541 Traumatic arthropathy, right hand; F03.90 Unspecified dementia, unspecified severity, without behavioral disturbance, psychotic disturbance, mood disturbance, and anxiety; M54.2 Cervicalgia; M54.5 Low back pain; E11.9 Type 2 diabetes mellitus without complications; I10 Essential (primary) hypertension; E03.9 Hypothyroidism, unspecified; Z87.891 Personal history of nicotine dependence
CPT/HCPCS: 72040; 99284

== ENCOUNTER 2020-10-26 17:53 | Emergency (ER) | payer MEDICARE, MEDICAID ==
[~2020-10-26] VITALS: Ht 167.6 cm; Wt 70.0 kg
[2020-10-26] MEDS ORDERED: DIPHENHYDRAMINE 25 MG CAPSULE ONE (18:24)
[2020-10-26] MEDS ORDERED: ONDANSETRON ODT 4 MG ONE (18:24)
[2020-10-26] MEDS ORDERED: DIPHENHYDRAMINE 50 MG/ML, 1ML ONE (18:28)
[2020-10-26] MEDS ORDERED: FAMOTIDINE 20 MG/2 ML IVPush ONE (18:30)
[2020-10-26] MEDS ORDERED: SODIUM CHLORIDE FLUSH 10ML SYR IVF ONE (18:30)
[2020-10-26] MEDS ORDERED: METOCLOPRAMIDE 5 MG/ML, 2ML IVPush PRN (18:30)
[2020-10-26] MEDS ORDERED: DIPHENHYDRAMINE 25 MG CAPSULE PO ONE (18:30)
[2020-10-26] MEDS ORDERED: DIPHENHYDRAMINE 50 MG/ML, 1ML IM ONE (18:30)
[2020-10-26] MEDS ORDERED: SODIUM CHLORIDE 0.9% 1,000ML IVBOLUS ONE (18:30)
[2020-10-26] MEDS ORDERED: ONDANSETRON ODT 4 MG PO ONE (18:30)
--- NOTE | 2020-10-26 18:48 | NUR ---
PT BIBA. PER EMS PT WAS BROUGHT FROM [facility] AND WAS BROUGHT D/T N/V OF A BROWN SUBSTANCE. PER EMS THEY DID NOT SEE PT VOMIT. PT RESTING IN GURNEY, REFUSING MONITORING, PT REFUSING IV AND LAB DRAW. PT'S DAUGHTER, HILARIO, CALLED. TM.
[2020-10-26] MEDS ORDERED: LORazepam 2 MG/ML, 1ML ONE ×2 (18:55→21:41)
[2020-10-26] MEDS ORDERED: LORazepam 2 MG/ML, 1ML IM ONE (19:00)
--- NOTE | 2020-10-26 19:32 | NUR ---
PT BEING UNCOOPERATIVE AT THIS TIME. DR. SIN AWARE. PT MEDICATED PER EMAR, WILL HAVE LAB COME RETRY TO DRAW IN 15 MINUTES.
--- NOTE | 2020-10-26 20:32 | NUR ---
PT STATING SHE WILL NOT ALLOW ANY MORE LAB DRAWS UNTIL "MY CAT IS ASLEEP". PT HAS STUFFED CAT AT BEDSIDE.
[2020-10-26] MEDS ORDERED: HALOPERIDOL 5 MG/ML ONE (20:53)
[2020-10-26] MEDS ORDERED: HALOPERIDOL 5 MG/ML IM PRN (21:00)
[2020-10-26] MEDS ORDERED: LORazepam 2 MG/ML, 1ML IM PRN (21:00)
--- NOTE | 2020-10-26 21:03 | NUR ---
REPORT GIVEN TO BABATUNDE SHAFFER.
--- NOTE | 2020-10-26 21:04 | NUR ---
RECEIVED BS REPORT FROM BABATUNDE SANTOS TO ASSUME CARE OF PT.
--- NOTE | 2020-10-26 21:18 | NUR ---
PT. CONTINUES TO REFUSE BLOOD DRAW AT THIS TIME. SHOUTING AT STAFF "SHE ALREADY GOT SOME, SHE ISN'T TAKING ANYMORE." DISCUSSED NEED FOR BLOOD DRAW WITH PT. WITHOUT ANY EVIDENCE OF UNDERSTANDING. PT. WAS MEDICATED; WILL RE-ATTEMPT BLOOD DRAW AFTER MEDICATIONS TAKE EFFECT.
--- NOTE | 2020-10-26 21:30 | NUR ---
PT. YELLING AND CRYING IN ROOM. "I WANT MY MOTHER, GO GET HER! I KNOW SHE IS HERE. YOU ARE LYING." REASSURANCE OFFERED. PER DR. SIN IF THE HALDOL DOESN'T TAKE EFFECT WILL MEDICATE WITH 2MG ATIVAN IM.
--- NOTE | 2020-10-26 21:46 | NUR ---
PT. CONTINUES CRYING AND SHOUTING "I WANT MY MOTHER" OVER AND OVER. MEDICATED PER MAR.
--- NOTE | 2020-10-26 22:02 | NUR ---
PT. CONTINUES SHOUTING/CRYING FOR HER MOTHER. LAB TO BS TO ATTEMPT BLOOD DRAW AGAIN. STILL UNABLE AT THIS TIME. WILL TRY AGAIN WHEN ATIVAN TAKES EFFECT.
--- NOTE | 2020-10-26 22:13 | NUR ---
PT. PROVIDED WITH WATER PER REQUEST AFTER OK FROM DR. SIN. PT. HAS NOT BEEN VOMITING SINCE IN ED. PT. APPEARS TO BE MORE CALM AT THIS TIME.
--- NOTE | 2020-10-26 22:51 | NUR ---
PT. O2 SAT DROPPED TO LOW 70'S WHEN PT. STARTED TO FALL ASLEEP. O2 VIA NC 4L PLACED WITH IMMEDIATE INCREASE IN O2 SAT TO >95%. PT. OPENS EYES TO VERBAL STIMULI. PT. MUCH MORE CALM AT THIS TIME. LAB DRAW SUCCESSFUL. ALL MONITORS REMAIN IN PLACE. ALL SAFETY MEASUERS OBSERVED.
[2020-10-26 22:53] LABS: BASOPHILS % (AUTO) 1 % (0-1); EOSINOPHILS % (AUTO) 0 % (1-7); LYMPHOCYTES % (AUTO) 29 % (22-44); MEAN CORPUSCULAR HGB CONC 34.1 g/dL (32.4-35.8); MEAN PLATELET VOLUME 7.1 fL (7.4-10.4); MONOCYTES % (AUTO) 8 % (2-9); NEUTROPHILS % (AUTO) 62 % (42-75); PLATELET COUNT 424 x10^3/uL (130-400); RED CELL DISTRIBUTION WIDTH 15.3 % (9.6-15.2)
[2020-10-26 23:00] LABS: MD NO
[2020-10-26 23:10] LABS: ANION GAP 9 mmol/L (5-15); CALCIUM 9.3 mg/dL (8.5-10.1); CHLORIDE 107 mmol/L (98-107); CREATININE 0.82 mg/dL (0.55-1.02)
[2020-10-26 23:15] LABS: ALANINE AMINOTRANSFERASE 15 U/L (12-78); ALKALINE PHOSPHATASE 108 U/L (45-117); BILIRUBIN,TOTAL 1.2 mg/dL (0.2-1.0); TOTAL PROTEIN 7.7 g/dL (6.4-8.2)
--- NOTE | 2020-10-26 23:24 | NUR ---
PT. CALM ENOUGH NOW ABLE TO COLLECT STRAIGHT CATH UA. URINE WALKED TO LAB. PT. TOLERATED WELL. PT. CLEANSED OF HARD INCONTINENT STOOL. BEDDING CHANGED. MONITORS REMAIN IN PLACE. ALL SAFETY MEASURES MAINTAINED.
[2020-10-26 23:38] LABS: MICROSCOPIC INDICATED
[2020-10-27] MEDS ORDERED: POTASSIUM CHLORIDE 20 MEQ PACKET PO ONE
[2020-10-27] MEDS ORDERED: POTASSIUM CHLORIDE 20 MEQ PACKET ONE (00:18)
--- NOTE | 2020-10-27 00:26 | NUR ---
O2 WAS TURNED OFF FOR >10 MIN FOR SPO2 EVAL ON RA. PT. HAS MAINTAINED O2 SAT >91% OFF SUPPLEMENTAL OXYGEN.
--- NOTE | 2020-10-27 00:42 | NUR ---
REPORT CALLED TO BABATUNDE FELIZ AT [facility]. TP RN SETTING UP [facility] TRANSPORT.
--- NOTE | 2020-10-27 00:45 | NUR ---
THROUGHPUT: [facility] TO TRANSPORT PT TO [facility] ~0115 PER JIM. PRIMARY RN AWARE.
[2020-10-27 01:11] VITALS: BP 128/85
== END 2020-10-27 01:12 | disposition short-term general hospital (02) ==
LOC: ED 19:29
DX: R11.2 Nausea with vomiting, unspecified (principal); F03.91 Unspecified dementia, unspecified severity, with behavioral disturbance; E87.6 Hypokalemia; I10 Essential (primary) hypertension; I48.91 Unspecified atrial fibrillation; E03.9 Hypothyroidism, unspecified; E11.9 Type 2 diabetes mellitus without complications; Z87.891 Personal history of nicotine dependence
CPT/HCPCS: 36415; 80053; 81001; 83605; 83690; 85025; 87077; 87086; 93005; 96372; 99285; J1200; J1630; J2060; 87186